=== PATIENT | male | born 1985 | race Hispanic/Latino ===

== ENCOUNTER 2018-07-31 11:32 | Emergency (ER) | payer BC ==
[2018-07-31] MEDS ORDERED: HYDROCODONE/APAP 7.5/325 MG TAB ONE (12:25)
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
== END 2018-07-31 15:05 | disposition home or self-care (01) ==
LOC: ER 11:32
PROC: 2W3CX1Z Immobilization of Right Lower Arm using Splint (ICD-10-PCS; principal; 2018-07-31)
DX: S62.646A Nondisplaced fracture of proximal phalanx of right little finger, initial encounter for closed fracture (principal); V89.2XXA Person injured in unspecified motor-vehicle accident, traffic, initial encounter; I10 Essential (primary) hypertension; Z79.899 Other long term (current) drug therapy
CPT/HCPCS: 99284